=== PATIENT | male | born 1975 | race Caucasian/White ===

== ENCOUNTER 2018-09-01 08:22 | Inpatient (IN) | payer OTHER, MEDICAID ==
[~2018-09-01] VITALS: Ht 182.9 cm; Wt 113.4 kg
[2018-09-01] MEDS: SODIUM CHLORIDE 0.9% 1000ML BAG (SEPSIS BOLUS) IV ONE ×2 (09:34→11:39)
[2018-09-01] MEDS ORDERED: SUCCINYLCHOLINE CHLORIDE 200MG/10ML IV ONE (09:39)
[2018-09-01] MEDS ORDERED: ETOMIDATE 2MG/ML 10ML VIAL IV ONE ×2 (09:39→10:00)
[2018-09-01] MEDS ORDERED: SODIUM CHLORIDE 0.9% 1,000 ML IV ONE (09:56)
[2018-09-01] MEDS ORDERED: EPINEPHRINE 0.1MG/ML (1:10,000) 10ML SYR ONE (09:58)
[2018-09-01] MEDS ORDERED: PROPOFOL 10MG/ML 100ML 100 ML IV ONE (10:00)
[2018-09-01] MEDS ORDERED: VECURONIUM BROMIDE 10 MG/VIAL IV ONE (10:00)
[2018-09-01 10:13] LABS: BASOPHILS % 0.6 % (0.0-2.0); LYMPHOCYTES % 11.6 % (20.0-50.0); MEAN CORPUSCULAR HEMOGLOBIN 14.3 pg (28.0-32.0); MEAN CORPUSCULAR VOLUME 61.3 fL (80.0-94.0); MEAN PLATELET VOLUME 9.1 fl (7.4-10.4); MONOCYTES % 10.2 % (2.0-8.0); NEUTROPHILS % 77.6 % (40.0-76.0); PLATELET 458 x1000/uL (130-400); RED BLOOD CELL COUNT 1.98 mill/uL (4.7-6.1); RED CELL DISTRIBUTION WIDTH 22.4 % (11.6-14.6)
[2018-09-01 10:15] LABS: CHLORIDE 105 mEq/L (98-107)
[2018-09-01 10:16] LABS: HEMATOCRIT. 12.1 % (42.0-52.0); HEMOGLOBIN. 2.8 g/dL (14.0-18.0)
[2018-09-01 10:19] LABS: ETHANOL BLOOD < 10 mg/dL
[2018-09-01 10:28] LABS: D-DIMER 0.73 mg/L FEU (<0.50); INR 1.5; PROTHROMBIN TIME 14.9 sec (9.1-11.1)
[2018-09-01 10:31] LABS: BG FRACTION INSPIRED OXYGEN 100; BG HCO3 ACT 5.2 mmol/L (22.0-26.0); BG PCO2 23.8 mmHg (35.0-45.0); BG PH 6.956 (7.350-7.450); BG PO2 568.9 mmHg (75.0-100.0); BG SAMPLE SITE RIGHT BRACHIAL; BG TIDAL VOLUME(mL) 550 mL; BG TOTAL HEMOGLOBIN < 4.5 g/dL (12.0-18.0); BG VENT MODE VENT - A/C; BG VENT RATE 14 set
[2018-09-01 10:32] LABS: CLARITY URINE CLOUDY (CLEAR); COLOR URINE YELLOW (YELLOW); KETONES URINE TRACE (NEGATIVE); LEUKOCYTE ESTERASE URINE NEGATIVE (NEGATIVE); NITRITE URINE NEGATIVE (NEGATIVE); OCCULT BLOOD URINE 1+ (NEGATIVE); PROTEIN URINE NEGATIVE (NEGATIVE); SPECIFIC GRAVITY URINE 1.015 (1.005-1.030)
[2018-09-01 10:35] LABS: CREATINE KINASE 1977 IU/L (39-308)
[2018-09-01 10:54] LABS: *AMPHETAMINES SCREEN URINE NEGATIVE (NEGATIVE); *BARBITURATES SCREEN URINE NEGATIVE (NEGATIVE); *BENZODIAZEPINES SCREEN URINE NEGATIVE (NEGATIVE); *COCAINE SCREEN URINE NEGATIVE (NEGATIVE); METHADONE URINE SCREEN NEGATIVE (NEGATIVE); OPIATES URINE SCREEN NEGATIVE (NEGATIVE); PHENCYCLIDINE URINE SCREEN NEGATIVE (NEGATIVE)
[2018-09-01 10:55] LABS: CANNABINOID URINE SCREEN NEGATIVE (NEGATIVE)
[2018-09-01] MEDS ORDERED: PIPERACILLIN/TAZ 3.375G PREMIX 50 ML IV ONE (11:00)
[2018-09-01] MEDS ORDERED: VANCOMYCIN 1 G PREMIX 200 ML IV ONE (11:00)
[2018-09-01 11:18] LABS: PLATELET ESTIMATE INCREASED
[2018-09-01] MEDS ORDERED: SODIUM BICARBONATE 8.4% 1 MEQ/ML 50ML SYR IV NR (12:45)
[2018-09-01] MEDS ORDERED: IPRATROPIUM/ALBUTEROL 0.5-3(2.5)MG/3ML NEB HHN PRN (12:45)
[2018-09-01 13:06] LABS: MEAN CORPUSCULAR HEMOGLOBIN 19.9 pg (28.0-32.0); MEAN CORPUSCULAR VOLUME 66.4 fL (80.0-94.0); PLATELET 275 x1000/uL (130-400); RED BLOOD CELL COUNT 2.08 mill/uL (4.7-6.1); RED CELL DISTRIBUTION WIDTH 34.8 % (11.6-14.6)
[2018-09-01 13:08] LABS: HEMATOCRIT 13.8 % (42.0-52.0); HEMOGLOBIN 4.1 g/dL (14.0-18.0)
[2018-09-01] MEDS ORDERED: ACETAMINOPHEN 325MG TABLET PO PRN (13:45)
[2018-09-01] MEDS ORDERED: MAGNESIUM/ALUMINUM HYDROXIDE/SIMETHICONE 30ML UDC PO PRN (13:45)
[2018-09-01] MEDS ORDERED: CLONIDINE 0.1MG TABLET PO PRN (13:45)
[2018-09-01] MEDS ORDERED: ONDANSETRON HCL 4MG/2ML INJ IV PRN (13:45)
[2018-09-01 15:14] LABS: BG BASE EXCESS -7.8 mmol/L (-2.0-2.0); BG CARBOXYHEMOGLOBIN 0.6 % (0.5-1.5); BG DEOXYHEMOGLOBIN 2.3 % (0.0-5.0); BG FRACTION INSPIRED OXYGEN 40; BG HCO3 ACT 16.5 mmol/L (22.0-26.0); BG METHEMOGLOBIN 0.7 % (0.0-1.5); BG OXYGEN SATURATION 97.7 % (92.0-98.5); BG OXYHEMOGLOBIN 96.4 % (94.0-97.0); BG PCO2 27.9 mmHg (35.0-45.0); BG PH 7.391 (7.350-7.450); BG PO2 119.5 mmHg (75.0-100.0); BG SAMPLE SITE RIGHT BRACHIAL; BG TIDAL VOLUME(mL) 550 mL; BG TOTAL HEMOGLOBIN 5.1 g/dL (12.0-18.0); BG VENT MODE VENT - A/C; BG VENT RATE 24 set
[2018-09-01 15:41] LABS: T4 FREE 1.12 ng/dL (0.76-1.46)
[2018-09-01] MEDS: DEXT 5%/0.45% NACL 1000ML 1,000 ML IV SCH (16:00)
[2018-09-01] MEDS: PANTOPRAZOLE 80 MG in SODIUM CHLORIDE 0.9% 100 ML IV SCH (16:00)
[2018-09-01] MEDS: CEFTRIAXONE 1 G PREMIX 50 ML IV SCH (16:00)
[2018-09-01] MEDS ORDERED: PERMETHRIN 5% CREAM 60GM TOP NR (16:00)
[2018-09-01] MEDS ORDERED: PANTOPRAZOLE 80 MG in SODIUM CHLORIDE 0.9% 100 ML IV SCH (16:00)
[2018-09-01] MEDS ORDERED: OCTREOTIDE 1,000 MCG in SODIUM CHLORIDE 0.9% 100 ML IV ONE (16:00)
[2018-09-01] MEDS ORDERED: PANTOPRAZOLE SODIUM 40 MG/VIAL IV ONE (16:32)
[2018-09-01 16:45] LABS: FOLIC ACID (FOLATE) SERUM 19.2 ng/mL (>5.38)
[2018-09-01] MEDS: PROPOFOL 10MG/ML 100ML 100 ML IV PRN ×2 (17:03→19:11)
[2018-09-01] MEDS: OCTREOTIDE 1,000 MCG in SODIUM CHLORIDE 0.9% 98 ML IV PRN (17:04)
[2018-09-01] MEDS ORDERED: METRONIDAZOLE 500 MG PREMIX 100 ML IV SCH (18:00)
[2018-09-01 18:22] LABS: HEMATOCRIT 15.9 % (42.0-52.0); HEMOGLOBIN 5.1 g/dL (14.0-18.0)
[2018-09-01 19:06] LABS: HEPATITIS B SURFACE ANTIGEN NEGATIVE
[2018-09-01 19:35] LABS: HEPATITIS A AB IGM NEGATIVE (NEGATIVE)
[2018-09-01] MEDS ORDERED: LEVOFLOXACIN 500MG PREMIX 100 ML IV SCH (20:00)
[2018-09-01] MEDS: IPRATROPIUM/ALBUTEROL 0.5-3(2.5)MG/3ML NEB HHN SCH (21:25)
[2018-09-01] MEDS ORDERED: NOREPINEPHRINE 4MG/250ML PMX 250 ML IV PRN (21:30)
[2018-09-02] VITALS (74 sets, daily range): BP systolic 96–147; BP diastolic 50–85
[2018-09-02] MEDS: IPRATROPIUM/ALBUTEROL 0.5-3(2.5)MG/3ML NEB HHN SCH ×4 (01:46→20:36)
[2018-09-02] MEDS ORDERED: NOREPINEPHRINE 4 MG in DEXT 5% WATER 250 ML IV PRN (02:39)
[2018-09-02] MEDS: DEXT 5%/0.45% NACL 1000ML 1,000 ML IV SCH ×3 (03:07→23:07)
[2018-09-02] MEDS: LEVOFLOXACIN 500MG PREMIX 100 ML IV SCH (04:50)
[2018-09-02] MEDS: METRONIDAZOLE 500 MG PREMIX 100 ML IV SCH ×3 (04:50→22:36)
[2018-09-02] MEDS: PANTOPRAZOLE 80 MG in SODIUM CHLORIDE 0.9% 100 ML IV SCH ×3 (04:50→22:36)
[2018-09-02 05:42] LABS: MEAN CORPUSCULAR HEMOGLOBIN 23.6 pg (28.0-32.0); MEAN CORPUSCULAR VOLUME 70.5 fL (80.0-94.0); PLATELET 182 x1000/uL (130-400); RED BLOOD CELL COUNT 2.96 mill/uL (4.7-6.1); RED CELL DISTRIBUTION WIDTH 32.3 % (11.6-14.6)
[2018-09-02 06:05] LABS: HEMATOCRIT 20.9 % (42.0-52.0)
[2018-09-02] MEDS: PROPOFOL 10MG/ML 100ML 100 ML IV PRN ×3 (06:15→22:36)
[2018-09-02 08:04] LABS: BG BASE EXCESS -2.7 mmol/L (-2.0-2.0); BG CARBOXYHEMOGLOBIN 1.1 % (0.5-1.5); BG FRACTION INSPIRED OXYGEN 40; BG HCO3 ACT 20.8 mmol/L (22.0-26.0); BG METHEMOGLOBIN 0.7 % (0.0-1.5); BG OXYHEMOGLOBIN 97.2 % (94.0-97.0); BG PCO2 29.2 mmHg (35.0-45.0); BG PO2 163.1 mmHg (75.0-100.0); BG SAMPLE SITE RIGHT BRACHIAL; BG TIDAL VOLUME(mL) 550 mL; BG TOTAL HEMOGLOBIN 5.9 g/dL (12.0-18.0); BG VENT MODE VENT - A/C; BG VENT RATE 24 set
[2018-09-02 10:03] LABS: INR 1.2; PROTHROMBIN TIME 11.8 sec (9.1-11.1)
[2018-09-02] MEDS ORDERED: PERMETHRIN 5% CREAM 60GM TOP NR (13:00)
[2018-09-02] MEDS: FOLIC ACID 1 MG, THIAMINE HCL 100 MG, MVI, ADULT NO.1 10 ML in DEXTROSE 5% WATER 1,000 ML IV SCH ×4 (15:08)
[2018-09-02] MEDS: CEFTRIAXONE 1 G PREMIX 50 ML IV SCH (16:00)
[2018-09-02 18:00] LABS: HEMATOCRIT 22.2 % (42.0-52.0); HEMOGLOBIN 7.3 g/dL (14.0-18.0); MEAN CORPUSCULAR HEMOGLOBIN 23.6 pg (28.0-32.0); MEAN CORPUSCULAR VOLUME 71.4 fL (80.0-94.0); PLATELET 168 x1000/uL (130-400); RED BLOOD CELL COUNT 3.11 mill/uL (4.7-6.1); RED CELL DISTRIBUTION WIDTH 31.1 % (11.6-14.6)
[2018-09-03] VITALS (77 sets, daily range): BP systolic 97–159; BP diastolic 62–88
[2018-09-03] MEDS: IPRATROPIUM/ALBUTEROL 0.5-3(2.5)MG/3ML NEB HHN SCH ×4 (02:16→20:30)
[2018-09-03] MEDS ORDERED: PERMETHRIN 5% CREAM 60GM TOP NR (04:00)
[2018-09-03] MEDS ORDERED: PROPOFOL 10MG/ML 100ML 100 ML IV PRN (04:45)
[2018-09-03] MEDS: LEVOFLOXACIN 500MG PREMIX 100 ML IV SCH (04:46)
[2018-09-03] MEDS: PANTOPRAZOLE 80 MG in SODIUM CHLORIDE 0.9% 100 ML IV SCH (06:51)
[2018-09-03] MEDS: METRONIDAZOLE 500 MG PREMIX 100 ML IV SCH ×3 (06:51→21:21)
[2018-09-03] MEDS: OCTREOTIDE 1,000 MCG in SODIUM CHLORIDE 0.9% 98 ML IV PRN (06:52)
[2018-09-03 09:20] LABS: HEMATOCRIT 25.3 % (42.0-52.0); HEMOGLOBIN 8.1 g/dL (14.0-18.0); MEAN CORPUSCULAR HEMOGLOBIN 23.3 pg (28.0-32.0); MEAN CORPUSCULAR VOLUME 72.5 fL (80.0-94.0); PLATELET 92 x1000/uL (130-400); RED BLOOD CELL COUNT 3.49 mill/uL (4.7-6.1); RED CELL DISTRIBUTION WIDTH 31.7 % (11.6-14.6)
[2018-09-03] MEDS: PANTOPRAZOLE SODIUM 40 MG/VIAL IV SCH ×2 (11:00→21:21)
[2018-09-03] MEDS: DEXT 5%/0.45% NACL 1000ML 1,000 ML IV SCH ×2 (11:01→18:00)
[2018-09-03 11:15] LABS: CHLORIDE 115 mEq/L (98-107)
[2018-09-03 13:45] LABS: BG BASE EXCESS -1.9 mmol/L (-2.0-2.0); BG CARBOXYHEMOGLOBIN 0.2 % (0.5-1.5); BG DEOXYHEMOGLOBIN 1.3 % (0.0-5.0); BG FRACTION INSPIRED OXYGEN 40; BG HCO3 ACT 21.6 mmol/L (22.0-26.0); BG METHEMOGLOBIN 0.6 % (0.0-1.5); BG OXYGEN SATURATION 98.7 % (92.0-98.5); BG OXYHEMOGLOBIN 97.9 % (94.0-97.0); BG PH 7.448 (7.350-7.450); BG PO2 184.4 mmHg (75.0-100.0); BG PRESSURE SUPPORT 8; BG SAMPLE SITE RIGHT RADIAL; BG TOTAL HEMOGLOBIN 8.8 g/dL (12.0-18.0); BG VENT MODE VENT - CPAP
[2018-09-03] MEDS: FOLIC ACID 1 MG, THIAMINE HCL 100 MG, MVI, ADULT NO.1 10 ML in DEXTROSE 5% WATER 1,000 ML IV SCH ×4 (14:34)
[2018-09-03 18:31] LABS: HEMATOCRIT 26.2 % (42.0-52.0); HEMOGLOBIN 8.4 g/dL (14.0-18.0); MEAN CORPUSCULAR HEMOGLOBIN 23.6 pg (28.0-32.0); MEAN CORPUSCULAR VOLUME 73.5 fL (80.0-94.0); PLATELET 164 x1000/uL (130-400); RED BLOOD CELL COUNT 3.56 mill/uL (4.7-6.1); RED CELL DISTRIBUTION WIDTH 31.4 % (11.6-14.6)
[2018-09-03] MEDS: CEFTRIAXONE 1 G PREMIX 50 ML IV SCH (21:21)
[2018-09-04] VITALS (71 sets, daily range): BP systolic 82–153; BP diastolic 39–94
[2018-09-04] MEDS: IPRATROPIUM/ALBUTEROL 0.5-3(2.5)MG/3ML NEB HHN SCH ×4 (01:50→21:32)
[2018-09-04] MEDS: DEXT 5%/0.45% NACL 1000ML 1,000 ML IV SCH ×2 (04:00→13:37)
[2018-09-04] MEDS: METRONIDAZOLE 500 MG PREMIX 100 ML IV SCH ×3 (05:18→21:33)
[2018-09-04 05:54] LABS: BASOPHILS % 0.6 % (0.0-2.0); EOSINOPHILS % 4.3 % (0.0-5.0); HEMATOCRIT. 25.9 % (42.0-52.0); HEMOGLOBIN. 8.4 g/dL (14.0-18.0); LYMPHOCYTES % 17.3 % (20.0-50.0); MEAN CORPUSCULAR HEMOGLOBIN 23.5 pg (28.0-32.0); MEAN CORPUSCULAR VOLUME 72.4 fL (80.0-94.0); MEAN PLATELET VOLUME 8.4 fl (7.4-10.4); MONOCYTES % 9.2 % (2.0-8.0); NEUTROPHILS % 68.6 % (40.0-76.0); PLATELET 152 x1000/uL (130-400); RED BLOOD CELL COUNT 3.57 mill/uL (4.7-6.1); RED CELL DISTRIBUTION WIDTH 32.3 % (11.6-14.6)
[2018-09-04 05:57] LABS: CHLORIDE 112 mEq/L (98-107)
[2018-09-04] MEDS: PANTOPRAZOLE SODIUM 40 MG/VIAL IV SCH ×2 (08:51→20:56)
[2018-09-04] MEDS: FOLIC ACID 1 MG, THIAMINE HCL 100 MG, MVI, ADULT NO.1 10 ML in DEXTROSE 5% WATER 1,000 ML IV SCH ×4 (13:40)
[2018-09-04 20:13] LABS: HEMOGLOBIN 8.4 g/dL (14.0-18.0); MEAN CORPUSCULAR VOLUME 73.9 fL (80.0-94.0); PLATELET 159 x1000/uL (130-400); RED BLOOD CELL COUNT 3.66 mill/uL (4.7-6.1); RED CELL DISTRIBUTION WIDTH 32.2 % (11.6-14.6)
[2018-09-04] MEDS: NYSTATIN POWDER 15GM TOP SCH (20:55)
[2018-09-04] MEDS: CEFTRIAXONE 1 G PREMIX 50 ML IV SCH (21:34)
[2018-09-05] VITALS: BP 113/64
[2018-09-05] MEDS: DEXT 5%/0.45% NACL 1000ML 1,000 ML IV SCH ×3 (03:05→19:47)
[2018-09-05] MEDS: IPRATROPIUM/ALBUTEROL 0.5-3(2.5)MG/3ML NEB HHN SCH ×3 (03:13→21:06)
[2018-09-05 04:00] VITALS: BP 98/58
[2018-09-05] MEDS: METRONIDAZOLE 500 MG PREMIX 100 ML IV SCH ×3 (05:56→21:31)
[2018-09-05 08:00] VITALS: BP 122/66
[2018-09-05 08:38] LABS: CHLORIDE 110 mEq/L (98-107)
[2018-09-05] MEDS: PANTOPRAZOLE SODIUM 40 MG/VIAL IV SCH ×2 (08:42→20:03)
[2018-09-05] MEDS: NYSTATIN POWDER 15GM TOP SCH ×2 (08:42→20:02)
[2018-09-05 12:00] VITALS: BP 105/57
[2018-09-05] MEDS: FOLIC ACID 1 MG, THIAMINE HCL 100 MG, MVI, ADULT NO.1 10 ML in DEXTROSE 5% WATER 1,000 ML IV SCH ×4 (15:19)
[2018-09-05 16:00] VITALS: BP 108/64
[2018-09-05] MEDS: CEFTRIAXONE 1 G PREMIX 50 ML IV SCH (18:21)
[2018-09-05 20:00] VITALS: BP 114/63
[2018-09-06] VITALS: BP 102/57
[2018-09-06 04:00] VITALS: BP 131/86
[2018-09-06] MEDS: METRONIDAZOLE 500 MG PREMIX 100 ML IV SCH (06:02)
[2018-09-06] MEDS: DEXT 5%/0.45% NACL 1000ML 1,000 ML IV SCH (06:02)
[2018-09-06 08:00] VITALS: BP 116/71
[2018-09-06 08:00] LABS: CHLORIDE 108 mEq/L (98-107)
[2018-09-06] MEDS: PANTOPRAZOLE SODIUM 40 MG/VIAL IV SCH (08:39)
[2018-09-06] MEDS: NYSTATIN POWDER 15GM TOP SCH (08:39)
[2018-09-06] MEDS ORDERED: ACETAMINOPHEN 650MG/20.3ML UDC PO PRN (09:00)
[2018-09-06] MEDS: IPRATROPIUM/ALBUTEROL 0.5-3(2.5)MG/3ML NEB HHN SCH (09:21)
[2018-09-06 12:00] VITALS: BP 91/50
[2018-09-06] MEDS: FOLIC ACID 1 MG, THIAMINE HCL 100 MG, MVI, ADULT NO.1 10 ML in DEXTROSE 5% WATER 1,000 ML IV SCH ×4 (13:28)
[2018-09-06 13:37] VITALS: BP 128/60
[2018-09-06] MEDS ORDERED: OMEPRAZOLE 20MG CAPSULE EXTENDED RELEASE PO SCH (21:00)
== END 2018-09-06 14:18 | disposition home or self-care (01) | DRG 190 ==
LOC: ER 08:22 → MICUSO 11:05 → EDBEDREQ 12:49 → ENRESERV 23:00 → 6EST 09-04 18:29
PROVIDERS: ADMIT Internal Medicine; ATTEND Internal Medicine
PROC: 30233K1 Transfusion of Nonautologous Frozen Plasma into Peripheral Vein, Percutaneous Approach (ICD-10-PCS; principal; 2018-09-01)
PROC: 5A1945Z Respiratory Ventilation, 24-96 Consecutive Hours (ICD-10-PCS; 2018-09-01)
PROC: 30233N1 Transfusion of Nonautologous Red Blood Cells into Peripheral Vein, Percutaneous Approach (ICD-10-PCS; 2018-09-01)
PROC: 0BH17EZ Insertion of Endotracheal Airway into Trachea, Via Natural or Artificial Opening (ICD-10-PCS; 2018-09-01)
DX: I21.4 Non-ST elevation (NSTEMI) myocardial infarction (principal); J96.00 Acute respiratory failure, unspecified whether with hypoxia or hypercapnia; N17.0 Acute kidney failure with tubular necrosis; K72.00 Acute and subacute hepatic failure without coma; E43 Unspecified severe protein-calorie malnutrition; G93.41 Metabolic encephalopathy; E72.20 Disorder of urea cycle metabolism, unspecified; D68.9 Coagulation defect, unspecified; K92.2 Gastrointestinal hemorrhage, unspecified; E87.2 Acidosis; K76.0 Fatty (change of) liver, not elsewhere classified; B85.0 Pediculosis due to Pediculus humanus capitis; D62 Acute posthemorrhagic anemia; H70.93 Unspecified mastoiditis, bilateral; D50.9 Iron deficiency anemia, unspecified; R74.0 Nonspecific elevation of levels of transaminase and lactic acid dehydrogenase [LDH]; E03.9 Hypothyroidism, unspecified; Z59.0 Homelessness; Z68.33 Body mass index [BMI] 33.0-33.9, adult
CPT/HCPCS: 31500; 36415; 36430; 36600; 71045; 76700; 80048; 80076; 80305; 80307; 80320; 80329; 82140; 82248; 82375; 82550; 82607; 82746; 82805; 83540; 83550; 83605; 83880; 84439; 84443; 84478; 84484; 85014; 85018; 85027; 85379; 86705; 86709; 86803; 86850; 86900; 86920; 86927; 87340; 92610; 93005; 93306; 93970; 94002; 94003; 94640; 96365; 96366; 96368; 96375; 97162; 97166; 99291; A6261; C9113; J0330; J0696; J1956; J2354; J2405; J2543; J2704; J3370; J3411; J3490; J7030; J7040; J7050; J7070; J7620; P9016; P9017; G0480

== ENCOUNTER 2018-09-19 10:33 | Emergency (ER) | payer MEDICAID ==
[~2018-09-19] VITALS: Ht 177.8 cm; Wt 91.0 kg
[2018-09-19] MEDS ORDERED: SODIUM CHLORIDE 0.9% 1,000 ML IV ONE (11:04)
[2018-09-19 11:28] LABS: BASOPHILS % 2.1 % (0.0-2.0); EOSINOPHILS % 2.9 % (0.0-5.0); HEMATOCRIT. 31.4 % (42.0-52.0); HEMOGLOBIN. 9.8 g/dL (14.0-18.0); LYMPHOCYTES % 30.5 % (20.0-50.0); MEAN CORPUSCULAR VOLUME 73.3 fL (80.0-94.0); MEAN PLATELET VOLUME 8.5 fl (7.4-10.4); MONOCYTES % 10.3 % (2.0-8.0); NEUTROPHILS % 54.2 % (40.0-76.0); PLATELET 605 x1000/uL (130-400); RED BLOOD CELL COUNT 4.28 mill/uL (4.7-6.1); RED CELL DISTRIBUTION WIDTH 30.5 % (11.6-14.6)
[2018-09-19 11:31] LABS: CHLORIDE 103 mEq/L (98-107)
[2018-09-19 11:32] LABS: PROTHROMBIN TIME 10.3 sec (9.1-11.1)
[2018-09-19 11:35] LABS: ETHANOL BLOOD < 10 mg/dL
[2018-09-19 12:00] LABS: PLATELET ESTIMATE INCREASED
[2018-09-19 14:07] LABS: CLARITY URINE CLEAR (CLEAR); COLOR URINE YELLOW (YELLOW); KETONES URINE NEGATIVE (NEGATIVE); LEUKOCYTE ESTERASE URINE NEGATIVE (NEGATIVE); NITRITE URINE NEGATIVE (NEGATIVE); OCCULT BLOOD URINE NEGATIVE (NEGATIVE); PH URINE 6.5 (4.5-8.0); PROTEIN URINE NEGATIVE (NEGATIVE); SPECIFIC GRAVITY URINE 1.018 (1.005-1.030)
[2018-09-19 14:21] LABS: *AMPHETAMINES SCREEN URINE NEGATIVE (NEGATIVE); *BARBITURATES SCREEN URINE NEGATIVE (NEGATIVE); *BENZODIAZEPINES SCREEN URINE NEGATIVE (NEGATIVE); *COCAINE SCREEN URINE NEGATIVE (NEGATIVE); METHADONE URINE SCREEN NEGATIVE (NEGATIVE); OPIATES URINE SCREEN NEGATIVE (NEGATIVE)
[2018-09-19 14:22] LABS: CANNABINOID URINE SCREEN PRESUMTIVE POSITIVE (NEGATIVE); PHENCYCLIDINE URINE SCREEN NEGATIVE (NEGATIVE)
[2018-09-19 17:33] VITALS: BP 109/70
== END 2018-09-19 18:09 | disposition home or self-care (01) ==
LOC: ER 10:33 → CANBEDREQ 20:16
DX: R55 Syncope and collapse (principal); R53.1 Weakness; R42 Dizziness and giddiness; I10 Essential (primary) hypertension
CPT/HCPCS: 36415; 71045; 80053; 80305; 80320; 81003; 83605; 84484; 85025; 85610; 87040; 93005; 96360; 99284; J7030; G0480